=== PATIENT | female | born 1955 | race Caucasian/White ===

== ENCOUNTER 2019-01-10 09:54 | Outpatient (CLI) | payer BC ==
--- NOTE | 2019-01-10 10:32 | MMO ---
Bilateral MAMMO Bilat Screen [facility]. CLINICAL HISTORY: Patient is 63 years old and is seen for screening. The patient has the following family history of breast cancer: paternal grandmother. The patient has no personal history of cancer. VIEWS: The views performed were: bilateral craniocaudal with tomosynthesis and bilateral mediolateral oblique with tomosynthesis. FILMS COMPARED: The present examination has been compared to prior imaging studies performed at [facility] on 12/25/2012, 10/17/2014, 11/27/2015 and 03/15/2017. MAMMOGRAM FINDINGS: There are scattered fibroglandular densities. There are no suspicious masses, suspicious calcifications, or new areas of architectural distortion. IMPRESSION: THERE IS NO MAMMOGRAPHIC EVIDENCE OF MALIGNANCY. A ROUTINE FOLLOW-UP MAMMOGRAM IN 1 YEAR IS RECOMMENDED. THE RESULTS OF THIS EXAM WERE SENT TO THE PATIENT. ACR BI-RADS Category 1 - Negative MAMMOGRAPHY NOTE: 1. A negative mammogram report should not delay a biopsy if a dominant of clinically suspicious mass is present. 2. Approximately 10% to 15% of breast cancers are not detected by mammography. 3. Adenosis and dense breasts may obscure an underlying neoplasm. Reported by: FAB FRYE MD Electonically Signed: [id number]
== END 2019-01-10 09:55 | disposition home or self-care (01) ==
LOC: BICMAMMO 09:54
PROVIDERS: ATTEND Family Medicine
DX: Z12.31 Encounter for screening mammogram for malignant neoplasm of breast (principal); Z80.3 Family history of malignant neoplasm of breast
CPT/HCPCS: 77063; 77067

== ENCOUNTER 2020-01-24 10:01 | Outpatient (CLI) | payer BC ==
--- NOTE | 2020-01-24 11:01 | BD ---
EXAM: DEXA bone density examination HISTORY: 64-year-old female for osteoporosis screening COMPARISON: Prior DEXA evaluation dated October 28, 2016 FINDINGS: L1--bone mineral density 0.94 g/sq cm; T score -0.1. Z score 1.5 L2--bone mineral density 1.106 g/sq cm; T score 0.7; Z score 2.5 L3--bone mineral density 1.027 g/sq cm; T score -0.5; Z score 1.4 L4--bone mineral density 0.958 g/sq cm; T score -0.9, Z score 1.0 Total L1-L4--bone mineral density 1.014 g/sq cm; T score -0.3, Z score 1.5 Left femoral neck--bone mineral density0.633; T score -2.0, Z score -0.4 Total proximal left femur--bone mineral density 0.892; T score -0.4, Z score 0.8 The bone mineral density has slightly declined since the prior examination where previously the T sco re was -1.7. IMPRESSION: Based on the WHO criteria, the patient's bone mineral density is consideredOsteopenic. T he patient is at moderate risk for fracture. The bone mineral density has slightly declined from the prior exam.
--- NOTE | 2020-01-24 13:27 | MMO ---
Bilateral MAMMO Bilat Screen [facility]. CLINICAL HISTORY: Patient is 64 years old and is seen for screening. The patient has the following family history of breast cancer: paternal grandmother. The patient has no personal history of cancer. VIEWS: The views performed were: bilateral craniocaudal with tomosynthesis and bilateral mediolateral oblique with tomosynthesis. FILMS COMPARED: The present examination has been compared to prior imaging studies performed at [facility] on 10/17/2014, 11/27/2015, 03/15/2017 and 01/10/2019. This study has been interpreted with the assistance of computer-aided detection. MAMMOGRAM FINDINGS: There are scattered fibroglandular densities. There are no suspicious masses, suspicious calcifications, or new areas of architectural distortion. IMPRESSION: THERE IS NO MAMMOGRAPHIC EVIDENCE OF MALIGNANCY. A ROUTINE FOLLOW-UP MAMMOGRAM IN 1 YEAR IS RECOMMENDED. THE RESULTS OF THIS EXAM WERE SENT TO THE PATIENT. ACR BI-RADS Category 1 - Negative MAMMOGRAPHY NOTE: 1. A negative mammogram report should not delay a biopsy if a dominant of clinically suspicious mass is present. 2. Approximately 10% to 15% of breast cancers are not detected by mammography. 3. Adenosis and dense breasts may obscure an underlying neoplasm. Reported by: GAIL BAUMANN MD Electonically Signed: [id number]
== END 2020-01-24 10:02 | disposition home or self-care (01) ==
LOC: BICMAMMO 10:01
PROVIDERS: ATTEND Family Medicine
DX: Z12.31 Encounter for screening mammogram for malignant neoplasm of breast (principal); Z13.820 Encounter for screening for osteoporosis; M85.852 Other specified disorders of bone density and structure, left thigh; Z80.3 Family history of malignant neoplasm of breast
CPT/HCPCS: 77063; 77067; 77080

== ENCOUNTER 2021-02-13 04:45 | Emergency (ER) | payer BC, MEDICARE ==
[2021-02-13] MEDS ORDERED: Acetaminophen 500 MG TAB ONE (05:23)
[2021-02-13] MEDS ORDERED: Ondansetron PF 4 MG/2 ML Vial ONE (05:23)
[2021-02-13 05:41] LABS: #Basophils 0.1 thou/uL (0.0-0.2); #Neutrophils 4.8 thou/uL (1.40-6.50); %Basophils 1.6 % (0.0-1.0); %Eosinophils 0.4 % (0.0-10.0); %Lymphocytes 14.4 % (21.0-51.0); %Monocytes 14.4 % (0.0-10.0); %Neutrophils 69.1 % (42.0-75.0); Hemoglobin 12.9 g/dL (12.0-16.0); Mean Corpuscular HGB CONC 32.7 g/dL (32.0-36.0); Mean Corpuscular Hemoglobin 27.6 pg (27.0-31.0); Mean Corpuscular Volume 84.5 fL (78.0-98.0); Mean Platelet Volume 7.9 fL (7.4-10.4); Platelet Count 261 thou/uL (130-400); RBC Distribution Width 13.8 % (11.5-14.5); Red Blood Cell (RBC) Count 4.66 mill/uL (4.20-5.40)
[2021-02-13] MEDS ORDERED: diphenhydrAMINE 50 MG/ML VIAL ONE (06:54)
[2021-02-13] MEDS ORDERED: Metoclopramide HCl 10 MG/2 ML VIAL ONE (06:54)
[2021-02-13 07:12] LABS: Albumin 4.3 g/dL (3.4-4.8)
[2021-02-13 07:12] LABS: Bilirubin Negative (Negative); Blood, Urine Negative (Negative); Clarity Clear (Clear); Glucose, Urine (Dipstick) Greater than 1000 mg/dL (Negative); Ketone, Urine Trace mg/dL (Negative); Leukocyte Negative Leu/uL (Negative); Nitrite Negative (Negative); Protein, Urine (Dipstick) Negative (Neg-Trace); Specific Gravity, Urine 1.017 (1.002-1.036); Urobilinogen Normal mg/dL (Less than 2)
[2021-02-13 07:13] LABS: Chloride 101 mmol/L (98-107); Potassium 4.5 mmol/L (3.5-5.1); Sodium 135 mmol/L (136-145)
[2021-02-13 07:14] LABS: Calcium 9.7 mg/dL (7.8-10.44); Glucose 150 mg/dL (80-115)
[2021-02-13 07:15] LABS: Globulin 2.9 g/dL (2.4-3.5); Protein, Total 7.2 g/dL (5.8-8.1)
[2021-02-13 07:16] LABS: Anion Gap 15 mmol/L (10-20); Bilirubin, Total 0.2 mg/dL (0.2-1.2); Carbon Dioxide 24 mmol/L (23-31)
[2021-02-13 07:17] LABS: Alkaline Phosphatase 93 U/L (40-110)
[2021-02-13 07:18] LABS: BUN (Urea Nitrogen) 13 mg/dL (9.8-20.1); Calc. Creatinine Clearance 0 mL/min (70-130)
[2021-02-13 07:19] LABS: AST (SGOT) 21 U/L (5-34)
[2021-02-13 07:20] LABS: ALT (SGPT) 19 U/L (8-55)
[2021-02-13 07:42] LABS: SARS-CoV-2 NAA Rapid Test DETECTED (NotDetected)
== END 2021-02-13 08:57 | disposition home or self-care (01) ==
LOC: ERS 04:45
DX: U07.1 COVID-19 (principal); R00.0 Tachycardia, unspecified; E11.9 Type 2 diabetes mellitus without complications; K21.9 Gastro-esophageal reflux disease without esophagitis; I10 Essential (primary) hypertension; E78.5 Hyperlipidemia, unspecified
CPT/HCPCS: 71045; 80053; 81003; 84484; 85025; 87040; 93005; U0002; 36415; 96374; 96375; J1200; J2405; J2765

== ENCOUNTER 2021-11-24 13:00 | Outpatient (CLI) | payer MEDICARE | END 2021-11-24 13:01 | disposition home or self-care (01) | LOC: BICMAMMO 13:00 | PROVIDERS: ATTEND Family Medicine | DX: Z12.31 Encounter for screening mammogram for malignant neoplasm of breast (principal); Z80.3 Family history of malignant neoplasm of breast | CPT/HCPCS: 77063; 77067 ==

== ENCOUNTER 2022-06-09 14:11 | Outpatient (CLI) | payer MEDICARE | END 2022-06-09 14:12 | disposition home or self-care (01) | LOC: BICMAMMO 14:11 | PROVIDERS: ATTEND Family Medicine | DX: Z13.820 Encounter for screening for osteoporosis (principal); M85.851 Other specified disorders of bone density and structure, right thigh; M85.852 Other specified disorders of bone density and structure, left thigh; Z78.0 Asymptomatic menopausal state | CPT/HCPCS: 77080 ==

== ENCOUNTER 2023-01-01 03:04 | Observation (INO) | payer MEDICARE ==
[2023-01-01] MEDS ORDERED: Nitroglycerin 2% Ointment 1 INCH/1 GM Packet ONE (03:18)
[2023-01-01] MEDS ORDERED: dilTIAZem 25 MG/5 ML VIAL ONE (03:26)
[2023-01-01 04:49] LABS: #Basophils 0.1 thou/uL (0.0-0.2); #Eosinphils 0.1 thou/uL (0.0-0.7); #Monocytes 0.5 thou/uL (0.11-0.59); #Neutrophils 6.8 thou/uL (1.40-6.50); %Basophils 0.7 % (0.0-1.0); %Eosinophils 0.9 % (0.0-10.0); %Lymphocytes 15.3 % (21.0-51.0); %Monocytes 5.8 % (0.0-10.0); %Neutrophils 77.2 % (42.0-75.0); Hematocrit 38.7 % (36.0-47.0); Hemoglobin 12.4 g/dL (12.0-16.0); Mean Corpuscular Volume 84.3 fl (78.0-98.0); Mean Platelet Volume 10.1 fL (7.4-10.4); Platelet Count 300 10x3/uL (130-400); Red Blood Cell (RBC) Count 4.59 mill/uL (4.20-5.40); White Blood Cell (WBC) Count 8.8 10x3/uL (4.8-10.8)
[2023-01-01 05:12] LABS: ALT (SGPT) 18 U/L (8-55); AST (SGOT) 20 U/L (5-34); Albumin 4.2 g/dL (3.4-4.8); Alkaline Phosphatase 78 U/L (40-110); Anion Gap 15 mmol/L (10-20); BUN (Urea Nitrogen) 9 mg/dL (9.8-20.1); Bilirubin, Total 0.3 mg/dL (0.2-1.2); Calc. Creatinine Clearance 0 mL/min (70-130); Calcium 9.9 mg/dL (7.8-10.44); Carbon Dioxide 25 mmol/L (23-31); Chloride 103 mmol/L (98-107); Estimated GFR 78; Glucose 182 mg/dL (80-115); Lipase 43 U/L (8-78); Magnesium 1.8 mg/dL (1.6-2.6); Protein, Total 7.2 g/dL (5.8-8.1); Sodium 139 mmol/L (136-145)
[2023-01-01 05:15] LABS: Troponin I Less than 0.010 ng/mL (< 0.028)
[2023-01-01] MEDS ORDERED: Nitroglycerin 0.4 MG TAB (25 Tab Bottle) SL PRN (07:09)
[2023-01-01] MEDS ORDERED: Ondansetron PF 4 MG/2 ML Vial IVP PRN (07:09)
[2023-01-01] MEDS ORDERED: Acetaminophen 325 MG TAB PO PRN (07:09)
[2023-01-01] MEDS ORDERED: Dextrose 50% Abboject 50 ML SYRINGE SLOW IVP PRN (07:54)
[2023-01-01] MEDS ORDERED: Glucagon 1 MG/ML KIT IM PRN (07:54)
[2023-01-01] MEDS ORDERED: Dextrose 5% in Water 1,000 ML IV PRN (07:54)
[2023-01-01 08:15] LABS: Magnesium 1.8 mg/dL (1.6-2.6)
[2023-01-01 08:45] VITALS: BMI 25.5
[2023-01-01] MEDS ORDERED: Magnesium 2 GM/50 ML(in water) 2 GM in Premix Bag 1 BAG IVPB SCH (09:00)
[2023-01-01] MEDS ORDERED: Aspirin Chewable 81 MG TAB PO SCH (09:00)
[2023-01-01 09:02] LABS: Troponin I 0.021 ng/mL (< 0.028)
[2023-01-01] MEDS ORDERED: FEXOFENADINE HCL 180 MG PO PRN (09:04)
[2023-01-01] MEDS ORDERED: Loratadine 10 MG TAB PO PRN (09:12)
[2023-01-01 11:06] LABS: Troponin I Less than 0.010 ng/mL (< 0.028)
[2023-01-01] MEDS: FLUoxetine HCl 20 MG CAP PO SCH (12:02)
[2023-01-01] MEDS: Flecainide 50 MG TAB PO SCH ×2 (12:02→21:23)
[2023-01-01] MEDS: Lisinopril 5 MG TAB PO SCH ×2 (12:03→21:23)
[2023-01-01] MEDS ORDERED: Gabapentin 300 MG CAP PO SCH (21:00)
[2023-01-02 06:34] LABS: #Basophils 0.1 thou/uL (0.0-0.2); #Eosinphils 0.2 thou/uL (0.0-0.7); #Monocytes 0.5 thou/uL (0.11-0.59); #Neutrophils 2.9 thou/uL (1.40-6.50); %Basophils 1.1 % (0.0-1.0); %Eosinophils 2.9 % (0.0-10.0); %Lymphocytes 36.5 % (21.0-51.0); %Monocytes 8.1 % (0.0-10.0); %Neutrophils 51.2 % (42.0-75.0); Hematocrit 33.2 % (36.0-47.0); Hemoglobin 10.4 g/dL (12.0-16.0); Mean Corpuscular HGB CONC 31.3 g/dL (32.0-36.0); Mean Corpuscular Volume 86.2 fl (78.0-98.0); Mean Platelet Volume 10.1 fL (7.4-10.4); Platelet Count 277 10x3/uL (130-400); RBC Distribution Width 14.5 % (11.5-14.5); Red Blood Cell (RBC) Count 3.85 mill/uL (4.20-5.40); White Blood Cell (WBC) Count 5.6 10x3/uL (4.8-10.8)
[2023-01-02 06:43] LABS: Hemoglobin A1c 7.2 % (4.0-6.0)
[2023-01-02 07:00] LABS: ALT (SGPT) 14 U/L (8-55); AST (SGOT) 14 U/L (5-34); Albumin 3.7 g/dL (3.4-4.8); Alkaline Phosphatase 71 U/L (40-110); Anion Gap 14 mmol/L (10-20); BUN (Urea Nitrogen) 18 mg/dL (9.8-20.1); Bilirubin, Direct 0.1 mg/dL (0.1-0.3); Bilirubin, Total 0.2 mg/dL (0.2-1.2); Calc. Creatinine Clearance 57 mL/min (70-130); Calcium 8.9 mg/dL (7.8-10.44); Carbon Dioxide 27 mmol/L (23-31); Cardiac Risk 4.7 (Less than 4.5); Chloride 102 mmol/L (98-107); Cholesterol 216 mg/dl (< 200 Desired); Estimated GFR 55; Glucose 154 mg/dL (80-115); HDL Cholesterol 46 mg/dL (>60 Neg Risk); LDL Cholesterol, Calculated 142 mg/dL; Magnesium 2.3 mg/dL (1.6-2.6); Potassium 4.7 mmol/L (3.5-5.1); Protein, Total 6.2 g/dL (5.8-8.1); Sodium 138 mmol/L (136-145); Triglycerides 139 mg/dL (Less than 150)
[2023-01-02] MEDS ORDERED: HumaLOG 300 UNITS/3 ML VIAL SC PRN (08:06)
[2023-01-02] MEDS: FLUoxetine HCl 20 MG CAP PO SCH (08:27)
[2023-01-02] MEDS ORDERED: Aspirin 325 MG TAB PO SCH (09:00)
[2023-01-02] MEDS ORDERED: Lisinopril 5 MG TAB PO SCH (09:00)
[2023-01-02] MEDS ORDERED: LANSOPRAZOLE 15 MG PO SCH (09:00)
[2023-01-02] MEDS ORDERED: Non-Formulary Item 1 EACH (Fluoxetine Hcl [Prozac] 40 MG Capsule) PO SCH (09:00)
[2023-01-02] MEDS ORDERED: Regadenoson 0.4 MG/5 ML SYRINGE ONE (09:08)
[2023-01-02] MEDS: Flecainide 50 MG TAB PO SCH (13:24)
[2023-01-02 16:28] VITALS: BP 117/56; TEMP 97.9
[2023-01-02] MEDS ORDERED: Rosuvastatin 20 MG TAB PO SCH (21:00)
[2023-01-02] MEDS ORDERED: Non-Formulary Item 1 EACH (Rosuvastatin Calcium [Crestor] 40 MG Tablet) PO SCH (21:00)
== END 2023-01-02 17:30 | disposition home or self-care (01) ==
LOC: ERS 03:04 → SUATTDRO 03:04 → INTOOBSV 06:37 → 2NO 06:37
PROVIDERS: ADMIT Family Medicine; ATTEND Internal Medicine
DX: R07.89 Other chest pain (principal); I47.1 Supraventricular tachycardia; Z88.1 Allergy status to other antibiotic agents; I10 Essential (primary) hypertension; I07.1 Rheumatic tricuspid insufficiency; F41.9 Anxiety disorder, unspecified; E11.9 Type 2 diabetes mellitus without complications; E78.5 Hyperlipidemia, unspecified; Z79.82 Long term (current) use of aspirin; Z79.84 Long term (current) use of oral hypoglycemic drugs; Z79.899 Other long term (current) drug therapy
CPT/HCPCS: 70450; 71045; 78452; 80048; 80053; 80061; 80076; 82962 ×2; 83036; 83690; 83735 ×2; 83880; 84443; 84484 ×2; 85025 ×2; 85379; 93005; 93017; 93306; 94760; 96374; 96375; 99285; A9500; G0378 ×2; J2785; 36415; 36416; J3475

== ENCOUNTER 2023-03-21 09:00 | Outpatient (CLI) | payer MEDICARE | END 2023-03-21 09:01 | disposition home or self-care (01) | LOC: BICMAMMO 09:00 | PROVIDERS: ATTEND Family Medicine | DX: Z12.31 Encounter for screening mammogram for malignant neoplasm of breast (principal); Z80.3 Family history of malignant neoplasm of breast | CPT/HCPCS: 77063; 77067 ==

== ENCOUNTER 2023-12-07 10:38 | Outpatient (CLI) | payer MEDICARE | END 2023-12-07 10:39 | disposition home or self-care (01) | LOC: BICRAD 10:38 | PROVIDERS: ATTEND Physician Assistant | DX: M51.36 Other intervertebral disc degeneration, lumbar region (principal); M54.6 Pain in thoracic spine; M43.16 Spondylolisthesis, lumbar region; M47.816 Spondylosis without myelopathy or radiculopathy, lumbar region; M47.814 Spondylosis without myelopathy or radiculopathy, thoracic region | CPT/HCPCS: 72072; 72100 ==

== ENCOUNTER 2024-03-28 12:56 | Outpatient (CLI) | payer MEDICARE | END 2024-03-28 12:57 | disposition home or self-care (01) | LOC: ULT 12:56 → BICULT 12:57 | PROVIDERS: ATTEND Physician Assistant | DX: R19.00 Intra-abdominal and pelvic swelling, mass and lump, unspecified site (principal); N83.8 Other noninflammatory disorders of ovary, fallopian tube and broad ligament | CPT/HCPCS: 76856 ==

== ENCOUNTER 2024-03-29 10:49 | Outpatient (CLI) | payer MEDICARE | END 2024-03-29 10:50 | disposition home or self-care (01) | LOC: BICMAMMO 10:49 | PROVIDERS: ATTEND Physician Assistant | DX: Z12.31 Encounter for screening mammogram for malignant neoplasm of breast (principal); Z80.3 Family history of malignant neoplasm of breast | CPT/HCPCS: 77063; 77067 ==

== ENCOUNTER 2025-02-11 12:55 | Outpatient (CLI) | payer MEDICARE | END 2025-02-11 12:56 | disposition home or self-care (01) | LOC: BICMAMMO 12:55 | PROVIDERS: ATTEND Physician Assistant | DX: M25.552 Pain in left hip (principal); Z78.0 Asymptomatic menopausal state; M16.12 Unilateral primary osteoarthritis, left hip; M81.0 Age-related osteoporosis without current pathological fracture | CPT/HCPCS: 77080 ==